=== PATIENT | female | born 1995 | race African-American/Black ===

== ENCOUNTER 2017-01-01 21:06 | Emergency (ER) | payer OTHER, MEDICAID ==
[~2017-01-01] VITALS: Ht 154.9 cm; Wt 109.0 kg
[2017-01-01 21:09] VITALS: BP 136/82; PULSE 103; RESP 14; TEMP 99.3; O2SAT 100
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
[2017-01-02] MEDS ORDERED: MOBI15TA PO (00:43)
[2017-01-02] MEDS ORDERED: IBUPROFEN 600 MG TAB PO ONE (00:45)
== END 2017-01-02 01:25 | disposition home or self-care (01) ==
LOC: NEPD 21:06
DX: T14.8 Other injury of unspecified body region (principal); M79.671 Pain in right foot; M79.672 Pain in left foot; M25.552 Pain in left hip; M25.532 Pain in left wrist; V49.9XXA Car occupant (driver) (passenger) injured in unspecified traffic accident, initial encounter
CPT/HCPCS: 71020; 73110; 73502; 73620; 73630; 84703; 99284